=== PATIENT | male | born 1990 | race Caucasian/White ===

== ENCOUNTER 2020-08-28 19:56 | Emergency (ER) | payer OTHER, SELFPAY ==
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
[2020-08-28 20:08] VITALS: BP 117/75; PULSE 95; RESP 16; TEMP 36.8; O2SAT 98; BMI 29.5
--- NOTE | 2020-08-28 20:16 | PC.NURSE ---
PADDER CUSHION at bedside for primary eval.
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
== END 2020-08-28 21:59 | disposition home or self-care (01) ==
PROVIDERS: Emergency Provider Emergency Medicine
DX: S13.4XXA Sprain of ligaments of cervical spine, initial encounter (principal); S29.012A Strain of muscle and tendon of back wall of thorax, initial encounter; V47.5XXA Car driver injured in collision with fixed or stationary object in traffic accident, initial encounter; Y93.89 Activity, other specified; Y92.411 Interstate highway as the place of occurrence of the external cause; Y99.9 Unspecified external cause status
CPT/HCPCS: 71046; 72040; 73030; 99284